=== PATIENT | female | born 1990 ===

== ENCOUNTER 2017-01-18 12:28 | Observation (INO) | payer SELFPAY ==
--- NOTE | 2017-01-18 12:34 | EDPHY ---
H & P HPI/ROS: CHIEF COMPLAINT: Dysphasic, disoriented HISTORY OF PRESENT ILLNESS: The patient is a 26 y/o female arriving emergently via EMS as a Stroke Alert with acute onset dysphasia around 11:30 this morning, one hour prior to arrival here. Per staff on scene who spoke with her , she has been having mild headaches for the past couple days. It's unclear if she has a history of migraines and she is unable to tell me. Per EMS, while she was at work this morning she noted to fellow staff that she felt "weird." This progressed to disorientation and dysphasia prompting staff to call 911. Upon EMS contact, she was unable to state and/or remember her name and was unable to move her legs. Blood sugar was noted to be around 50 and she was given glucose by the paramedics with no change in her condition. Upon arrival here, she has no obvious weakness, but has significant dysphasia and moderate difficulty following commands. No anticoagulant use by history from . REVIEW OF SYSTEMS: Unable to obtain due to patient condition. Past medical history: Occasional headaches, no clear diagnosis of migraine. 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 No alcohol or drug abuse. at bedside. General Appearance: Alert, disoriented. Blood pressure 111/43 at triage. Head: No visible trauma, nor is normocephalic. Eyes: Pupils equal and round, no conjunctival injection, no discharge. ENT, Mouth: Mucous membranes are moist, no oropharyngeal erythema or edema. Neck: No lymphadenopathy, supple. No carotid bruits. Respiratory: Lungs are clear to auscultation; no wheezes, rales, or rhonchi. Cardiovascular: Regular rate and rhythm; no murmur, rub, or gallop. Gastrointestinal: Abdomen is soft and non tender, no masses or organomegaly Skin: Warm and dry, no rashes, normal color. Back: Nontender to palpation over the thoracolumbar spine. Extremities: No lower extremity edema, no calf tenderness or swelling. Neurological: Alert. Initial quick neurologic exam performed in the hallway upon her arrival. Disoriented, can only state first name. Word-finding difficulty and difficulty following commands. No pronator drift. Able to life both legs from the gurney. Psychiatric: Normal affect but appears slightly anxious. Constitutional: Initial Vital Signs Temperature (C) 37.2 C 01/18/17 12:43 Heart Rate 68 01/18/17 12:43 Respiratory Rate 18 01/18/17 12:43 Blood Pressure 111/43 L 01/18/17 12:43 O2 Sat (%) 100 01/18/17 12:43 O2 Delivery Mode Room Air Allergies/Adverse Reactions: No Known Allergies Allergy (Unverified 01/18/17 14:22) Home Medications: Medication Instructions Recorded Ibuprofen [Motrin (*)] 200 - 400 mg PO DAILY PRN 01/18/17 Norethindrone-E.estradiol-Iron 1 each PO DAILY 01/18/17 [Microgestin Fe 1-20 Tablet] Medical Decision Making - Diagnostics EKG Interpretation: 12 lead EKG is interpreted in Trace master View by emergency department physician. Imaging: Discussed imaging studies w/ call center trainer Radiologist, I viewed and interpreted images myself ED Course/Re-evaluation: 1228: Met EMS upon arrival and took report. This is a 26 y/o female with no known medical history who presents with a one-hour history of acute onset dysphasia and difficulty following commands. EMS reports their first glucometer was not calibrated and initially showed a BGL of 51 so they administered 25g of Dextrose en route. Per EMS, her symptoms improved slightly by arrival here. Ongoing dysphasia and some difficulty understanding commands, but no focal weakness on my assessment. 1232: Sent to CT. 1239: Consulted with Dr. Mcginnis, [facility]. He will assess her via telemedicine robot. 1240: Non-contrast head CT negative. 1241: now at bedside. Telemedicine neuro assessment en progress. NIHSS, based on my exam, five. 1248: Since she has no contraindications to use of TPA, Dr. Mcginnis recommends administering it, given the persistent an obvious language difficulty that she is having. ER staff has begun mixing TPA in preparation. Dr. Mcginnis discussed risks and benefits with her and her . She and her agree to treatment. After she receives TPA, we will complete a CTA of her head and neck. 1302: TPA administered. 1325: Patient is reluctant to complete CTAs. She is very worried about the cost as she is between insurance carriers. She seems to be perseverating and although her speech has improved, it is still not normal. At the time of this re-evaluation she is able to read the sentences that, with the NIHSS and she is also to name some of the objects, but not all of them. She continues with some language difficulties, word-finding difficulty, on perseveration. She is denying headache. She is still unable to provide a cohesive history. She has normal and symmetric strength in all 4 extremities. [facility] Financial Assistance will come and speak with about payment and insurance coverage options. 1350: RN informs me patient is complaining of a headache. 1410: Reassessed patient. She is quite distressed and agitated and wants to go home, but is still inappropriate in her behavior and speech. Her says since returning from her CTA she has been complaining of a headache. TPA drip had almost finished, but we shut it off due to this change in presentation. 1412: Spoke with hospitalist service. Dr. Tolbert accepts admission. 1415: Continued reassessment. She is tearful and agitated. She is unable to tell me her name. She can only say, "I can't" in response to different questions. She continues to move all 4 extremities voluntarily and equally. MIGUEL ANGEL. EOMI. Tongue midline. Will consult with neurology again. 1423: Consulted again with Dr. Mcginnis, neurology. He wants a repeat CT to rule out hemorrhage. If the CT scan does not show a bleed he recommends completing TPA. 1425: Negative CTAs of the head and neck. 1427: Discussed recommendation with patient and her . They agree to another CT. She also agrees to take some Ativan to help with her anxiety. As it turns out, she was not given Ativan and she became calmer without any pharmacologic interventions. The 12 lead EKG was interpreted by myself. Sinus rhythm rate 71. See hard copy and/or "tracemaster" electronic copy for interpretation. I reviewed her laboratory studies. Repeat head CT, performed after initiation of tPA and in the setting of neurologic deterioration, is negative for intracranial hemorrhage. She is being admitted to the intensive care unit following the administration of tPA for possible stroke. Given her young age and lack of risk factors, stroke is unlikely. Stroke is even more unlikely in the setting of a normal head CT x2 and normal head and neck CT angiograms. However, an MRI will be needed to completely eliminate stroke from the differential. She initially had low blood sugar but this does not appear to be the explanation for her altered mental status and language difficulty. Electrolytes are within normal limits. I do not find any evidence of infection. None of the history is suggestive of seizure. She has not had recent trauma. She has complained intermittently of headache and has a family history of headache. I think complex migraine is the most likely diagnosis in this setting, given the information that is currently available. That said, she has significant neurologic deficit and I agree with the [facility] neurologist that stroke evaluation including tPA is fully warranted in this setting. Differential Diagnosis: Altered mental status including but not limited to hypoglycemia, infectious process, CVA, electrolyte abnormality, head injury and intoxicants. Critical Care Time: I, Dr. Alana Smith, personally spent a total of 45 minutes of critical care time including time spent obtaining a history, performing a physical exam, monitoring interventions, collecting and interpreting tests and in discussion with consultants. This does not include time spent performing procedures or physician ict sales assistant time. - Data Points Medications Given: Discontinued Medications Acetaminophen (Tylenol) 650 mg PO Q4HRS PRN PRN Reason: Pain, Mild/Fever, Can Take PO Stop: 07/17/17 15:13 Last Admin: 01/18/17 23:11 Dose: 650 mg Acetaminophen (Tylenol) 1,000 mg PO ONCE ONE Stop: 01/18/17 15:43 Last Admin: 01/18/17 15:52 Dose: 1,000 mg Alteplase, Recombinant (Activase) 5.229 mg 0.09 mg/kg (5.229 mg) IV ONCE ONE PRN Reason: Protocol Stop: 01/18/17 12:57 Last Admin: 01/18/17 13:02 Dose: 5.229 mg Alteplase, Recombinant (Activase) 47.061 mg 0.81 mg/kg (47.061 mg) IV ONCE ONE PRN Reason: Protocol Stop: 01/18/17 12:57 Last Admin: 01/18/17 13:03 Dose: 47.061 mg Dextrose (Dextrose 50% Syringe) 12.5 - 25 gm IVP PRN PRN; Protocol PRN Reason: BG<70 Stop: 07/17/17 15:17 Last Admin: 01/18/17 15:20 Dose: 12.5 gm Hydromorphone/Sodium Chloride (Hydromorphone) 0.2 mg IVP ONCE ONE Stop: 01/18/17 17:07 Last Admin: 01/18/17 17:10 Dose: 0.2 mg Sodium Chloride (Ns) 50 mls @ 0 mls/hr IV EDNOW ONE; Per Protocol PRN Reason: Protocol Stop: 01/18/17 12:57 Last Admin: 01/18/17 13:59 Dose: 25 mls Sodium Chloride (Ns) 1,000 mls @ 100 mls/hr IV CONT GIANNI Stop: 07/17/17 15:14 Last Admin: 01/19/17 01:00 Dose: 1,000 mls Lorazepam (Ativan Injection) 1 mg IVP EDNOW ONE Stop: 01/18/17 14:27 Last Admin: 01/18/17 16:32 Dose: Not Given Lorazepam (Ativan Injection) 1 mg IVP ONCE ONE Stop: 01/18/17 18:31 Last Admin: 01/18/17 18:23 Dose: 1 mg Miscellaneous Medication (Norethindrone-E.Estradiol-Iron [Microgestin Fe 1-20 Tablet]) 1 each PO DAILY GIANNI Stop: 07/18/17 08:59 Last Admin: 01/19/17 09:20 Dose: Not Given Ondansetron HCl (Zofran) 4 mg IVP Q4HRS PRN PRN Reason: Nausea/Vomiting, Can't Take PO Stop: 07/17/17 15:13 Last Admin: 01/18/17 17:13 Dose: 4 mg Departure - Departure Disposition: [facility] Inpatient Acute Clinical Impression: Dysphasia CVA (cerebral vascular accident) Qualifiers: CVA mechanism: other Qualified Code(s): I63.8 - Other cerebral infarction Condition: Fair Report Scribed for: Alana Smith Report Scribed by: Aarti Urena Date of Report: 01/18/17 Time of Report: 14:13 Physician Review and Approval Statement: 01/19/17 06:39 Portions of this note were transcribed by the diagnostic medical sonographer. I, Dr. Alana Smith, personally performed the history, physical exam, and medical decision- making; and confirmed the accuracy of the information in the transcribed note.
[2017-01-18 12:49] LABS: % IMMATURE GRANULYOCYTES 0.1 % (0.0-1.1); ABSOLUTE IMMATURE GRANULOCYTES 0.01 10^3/uL (0.00-0.10); ADD DIFF? NO; ADD MORPH? NO; ADD SCAN? NO; ATYPICAL LYMPHOCYTE FLAG 0 (0-99); FRAGMENT RBC FLAG 0 (0-99); HEMATOCRIT 42.7 % (38.0-47.0); HEMOGLOBIN 15.3 g/dL (12.6-16.3); LEFT SHIFT FLG 0 (0-99); LIPEMIA HEMOLYSIS FLAG 90 (0-99); MEAN CELL HEMOGLOBIN 30.7 pg (27.9-34.1); MEAN CELL HEMOGLOBIN CONCENTR. 35.8 g/dL (32.4-36.7); MEAN CELL VOLUME 85.7 fL (81.5-99.8); MEAN PLATELET VOLUME 11.8 fL (8.7-11.7); PLATELET CLUMPS FLAG 0 (0-99); PLATELET COUNT 230 10^3/uL (150-400); RED BLOOD CELL COUNT 4.98 10^6/uL (4.18-5.33); RED CELL DISTRIBUTION WIDTH 12.2 % (11.5-15.2)
[2017-01-18] MEDS ORDERED: ALTEPLASE 100 MG/100 ML VIAL IV ONE ×2 (12:50→12:56)
[2017-01-18] MEDS ORDERED: ALTEPLASE 1 MG/ML SYR IV ONE (12:56)
[2017-01-18] MEDS ORDERED: NS 50 ML IV ONE (12:56)
[2017-01-18 13:01] LABS: ANION GAP 16 mEq/L (8-16); CALCIUM 9.4 mg/dL (8.5-10.4); CARBON DIOXIDE 19 mEq/l (22-31); CHLORIDE 102 mEq/L (97-110); CREATININE 0.8 mg/dL (0.6-1.0); GLOMERULAR FILTRATION RATE > 60; GLUCOSE 83 mg/dL (70-100); POTASSIUM 3.9 mEq/L (3.5-5.2); SODIUM 137 mEq/L (134-144)
[2017-01-18 13:12] LABS: TROPONIN I < 0.012 ng/mL (0.000-0.034)
[2017-01-18] MEDS ORDERED: IOPAMIDOL (ISOVUE 370) 100 ML BTL IV ONE (13:13)
[2017-01-18 13:17] LABS: INR 0.97 (0.83-1.16); PROTIME(PATIENT) 12.8 SEC (12.0-15.0)
[2017-01-18 13:18] LABS: APTT 25.9 SEC (23.0-38.0)
[2017-01-18] MEDS ORDERED: LORazepam 2 MG/ML INJ IVP ONE ×2 (14:26→18:30)
--- NOTE | 2017-01-18 14:40 | CPEKG ---
Heart Rate: 71 RR Interval: 845 P-R Interval: 136 QRSD Interval: 82 QT Interval: 404 QTC Interval: 439 P [place]: 51 QRS [place]: 90 T Wave [place]: 10 EKG Severity - OTHERWISE NORMAL ECG - EKG Impression: SINUS RHYTHM EKG Impression: BORDERLINE RIGHT AXIS DEVIATION Electronically Signed By: Alana Smith 18-Jan-2017 15:28:46
[2017-01-18] MEDS ORDERED: ONDANSETRON 4 MG/2 ML VIAL IVP PRN (15:14)
[2017-01-18] MEDS ORDERED: ACETAMINOPHEN 325 MG TAB PO PRN (15:14)
[2017-01-18] MEDS ORDERED: ONDANSETRON DISINTEGRATING 4 MG TAB PO PRN (15:14)
[2017-01-18] MEDS ORDERED: D50W 25 GM/50 ML SYR IVP PRN (15:18)
--- NOTE | 2017-01-18 15:21 | ASMTCMCOM ---
CM Note CM Note Notes: 26 year old female admitted for CVA, Dysphasia. Tx = TPA. Therapies to eval, CM to follow-may not have discharge needs. Date Signed: 01/18/2017 03:20 PM Electronically Signed By:Fina Tyler LCSW
[2017-01-18] MEDS ORDERED: ACETAMINOPHEN 500 MG TAB PO ONE (15:42)
[2017-01-18] MEDS: NS 1,000 ML IV SCH (15:52)
--- NOTE | 2017-01-18 16:42 | GHP ---
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 She experienced an aura of decreased vision in he r right eye, with perhaps some numbness in her hand, and subsequently developed difficulty speaking. 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 She presented to the emergency department where aphasia was demonstrated. She had a normal noncontra st head CT, and in conjunction with [facility] from [facility], tPA was administered. My first encounter with the patient was after tPA was administered. She was having a difficult time answering questions. She was alert and had an expressive aphasia. There was some word salad. She h ad difficulty naming objects. She had a mild headache. She is anxious. She is upset. In speaking with her , she has no history of seizures. There is no heavy drug or alcohol use. They nathaniel borated a family history of migraines, although it is not clear if they have stroke mimicking symptom s. She denies recent fever, chills, cough, sputum, nausea, vomiting, diarrhea. She is not . At the scene, she was found have a blood glucose of 50. Glucose was administered without change in h er symptoms. REVIEW OF SYSTEMS: A complete 10-point review of systems was conducted and negative except as noted in the HPI. PAST MEDICAL HISTORY: None. ALLERGIES: None. HOME MEDICATIONS: control pills and naproxen. SOCIAL HISTORY: She has recently moved to [place] over the summer. She is from [place]. She is a nonsmoker, rare alcohol. FAMILY HISTORY: Notable for migraines. PHYSICAL EXAMINATION: PRESENTING VITALS: Temp 37.2, blood pressure 111/43, pulse 60, breathing 18 t imes a minute, 100% on room air. GENERAL: No acute distress. HEENT: Sclerae anicteric. Oropharyn x clear. Mucous membranes moist. NECK: Supple without lymphadenopathy or JVD. LUNGS: Clear to au scultation bilaterally. HEART: S1, S2 without murmurs. ABDOMEN: Soft, nontender, nondistended. L OWER EXTREMITIES: Without edema. Calves nontender. SKIN: Without rash. NEUROLOGIC: Exam reveals an expressive aphasia. She is having a hard time following commands. She is having a hard time com plying with the exam, but as best I can tell, there is no evidence of focal weakness or numbness. LABORATORY DATA: Sodium 137, potassium 3.9, chloride 102, bicarb 19, BUN 11, creatinine 0.8, glucose 83. Her calcium was 9.4. Troponin was less than 0.012. Beta hCG is negative. Coags are normal. CBC: White count 7, hematocrit 43, platelets are 230,000. EKG interpreted by me shows sinus at 71 with normal axis and intervals. There are no ST or T-wave ch anges. This is a normal EKG. Her initial head CT is a normal CT. CTA of the head is read as normal. [place] and its bra nches are normal. There is no evidence of aneurysm or vascular malformation. There are no occlusion s. I reviewed these studies with and Dr. Shaw Gil. CTA of the neck is normal. The re are widely patent carotids and vertebral arteries. Repeat noncontrast head CT performed after the worsening of symptoms in the ER is negative. I discussed the case at length with the [facility]ist, Dr. Alana Smith, Dr. Shaw Gil and Dr. William Rinaldi. ASSESSMENT/PLAN: A 26-year-old female who presents with aphasia concerning for cerebrovascular accid ent. 1. Question cerebrovascular accident. The patient has essentially zero risk factors for stroke, giv en age and absence of vascular history. She is in sinus rhythm. She does not have a history of clot ting or other disorders, nor are there any of these in her family. 2. At this point in time, there is no large vessel occlusion which does not exclude a cortical strok e. She has received tPA and a followup CT scan has showed no evidence of bleed. Her blood pressures are low in the 100/60 range. 3. I think an MRI is very important to distinguish stroke from other entity, such as atypical migrai ne or seizure. I have ordered an MRI without contrast. 4. Stroke workup. I think there is a serious possibly this does not represent stroke. The patient is very cough conscious. I have deferred secondary stroke workup pending the results of the MRI. 5. TPA administration. Her blood pressure is low. We will hold off on anticoagulation or antiplate let agents for at least 48 hours. 6. Metabolic acidosis. She has a mild acidosis. I suspect this is ketosis given her low blood suga r. It was repeated here and it was 58. 7. Prophylaxis. The patient is low risk. We will provide SCDs. 8. Disposition: ICU. /[id number]/MODL
[2017-01-18] MEDS ORDERED: HYDROmorphone HCL/NS/PF 0.4 MG/2 ML SYR IVP ONE (17:06)
[2017-01-18] MEDS ORDERED: LORazepam 2 MG/ML INJ ONE (17:59)
--- NOTE | 2017-01-18 19:07 | HOSPPROG ---
Hospitalist Progress Note Assessment/Plan: MRI negative for stroke- normal MRI 1. suspect atypical migraine in that she had aura, followed by neurologic sx followed by [facility] 2. EEG ordered for AM to rule out seizures 3. can forego remaining stroke workup Objective: Vital Signs Temp Pulse Resp BP Pulse Ox 36.2 C 69 23 H 104/60 100 01/18/17 16:00 01/18/17 18:45 01/18/17 18:45 01/18/17 18:45 01/18/17 18:45 Laboratory Results 01/18/17 Unknown 01/18/17 Unknown 01/17/17 01/18/17 01/19/17 05:59 05:59 05:59 Intake Total 48.3 Output Total 350 Balance -301.7 PT 12.8 SEC (12.0-15.0) 01/18/17 Unknown INR 0.97 (0.83-1.16) 01/18/17 Unknown ICD10 Worksheet Patient Problems: Problems Problem Status Onset CVA (cerebral vascular accident) Acute Dysphasia Acute
[2017-01-19] MEDS: NS 1,000 ML IV SCH (01:00)
--- NOTE | 2017-01-19 04:43 | GCON ---
[f rep st] CONSULTATION SUPERINTENDENT GENERAL CONSULTATION REASON FOR ADMISSION: Possible stroke. The patient is a very pleasant 26-year-old white female with a past medical history of migraines. Gibson griffin was brought in via EMS under a stroke alert for acute onset of dysphasia. [facility] was c onsulted, and a noncontrast CT was performed and it was negative. She was subsequently given tPA and admitted to the intensive care unit. Repeat CT scan does not show acute stroke. Currently, she is still remains dysphasic. She is able answer a few questions appropriately, but many she is not able to. She is somewhat tearful. PAST MEDICAL HISTORY: Again, significant for migraines. PAST SURGICAL HISTORY: None. ALLERGIES: No known to medications. SOCIAL HISTORY: No history of tobacco use. No history of alcohol abuse. She works at [employer]. She is . is at the bedside. PHYSICAL EXAM: VITAL SIGNS: Blood pressure is 137/111, pulse is 115, respirations 22, temperature 3 6.6, oxygen saturation 100% on room air. GENERAL: She is a well-developed, well-nourished, 26-year- old, white female who is mild distress. HEENT: Eyes MIGUEL ANGEL, EOMI. Throat shows no erythema or tonsil lar hypertrophy. NECK: Supple. There is no cervical adenopathy. HEART: Regular rate and rhythm w ithout murmurs, rubs, or gallops. LUNGS: Clear to auscultation. No wheeze or rhonchi. ABDOMEN: S oft, nontender. Bowel sounds are present in all 4 quadrants. EXTREMITIES: No clubbing, cyanosis, o r edema. NEUROLOGICAL: She has some evidence of expressive aphasia. IMPRESSION: Expressive aphasia, etiology which is unclear. She has had a negative CT scan of the he ad. Query whether this may be seizure versus complex migraine. RECOMMENDATIONS: 1. Neurology consult. 2. Agree with MRI. 3. PT and OT. 4. Speech consult. 5. DVT and PE prophylaxis. 6. Stress ulcer prophylaxis. /[id number]/MODL
[2017-01-19 05:18] LABS: % IMMATURE GRANULYOCYTES 0.2 % (0.0-1.1); ABSOLUTE IMMATURE GRANULOCYTES 0.02 10^3/uL (0.00-0.10); ADD DIFF? NO; ADD MORPH? NO; ADD SCAN? NO; ATYPICAL LYMPHOCYTE FLAG 10 (0-99); FRAGMENT RBC FLAG 0 (0-99); HEMATOCRIT 36.1 % (38.0-47.0); HEMOGLOBIN 12.8 g/dL (12.6-16.3); LEFT SHIFT FLG 0 (0-99); LIPEMIA HEMOLYSIS FLAG 90 (0-99); MEAN CELL HEMOGLOBIN CONCENTR. 35.5 g/dL (32.4-36.7); MEAN CELL VOLUME 87.4 fL (81.5-99.8); MEAN PLATELET VOLUME 11.2 fL (8.7-11.7); PLATELET CLUMPS FLAG 0 (0-99); PLATELET COUNT 191 10^3/uL (150-400); RED BLOOD CELL COUNT 4.13 10^6/uL (4.18-5.33); RED CELL DISTRIBUTION WIDTH 12.2 % (11.5-15.2)
[2017-01-19 05:48] LABS: INR 1.16 (0.83-1.16); PROTIME(PATIENT) 14.8 SEC (12.0-15.0)
[2017-01-19 08:27] VITALS: TEMP 207.7
[2017-01-19] MEDS ORDERED: NORETHINDRONE E ESTRADIOL IRON PO SCH (09:00)
[2017-01-19] MEDS ORDERED: MICROGESTIN FE PO SCH (09:00)
--- NOTE | 2017-01-19 09:07 | PDINTPN ---
[facility] Progress Note Assessment/Plan: Assessment: * Expressive aphasia-resolved * Complex migraine Plan: Continue bed rest of this afternoon after receiving tPA yesterday. Begin PT and OT later on today Neurology to see Anticipate discharge home today Subjective: Looks and feels markedly improved. Expressive aphasia has resolved Objective: Vital Signs Temp Pulse Resp BP Pulse Ox 97.6 C H 76 20 115/71 97 01/19/17 08:15 01/19/17 08:15 01/19/17 08:15 01/19/17 08:15 01/19/17 08:15 Laboratory Results 01/19/17 05:00 01/18/17 Unknown 01/18/17 01/19/17 01/20/17 05:59 05:59 05:59 Intake Total 1248.3 500 Output Total 750 400 Balance 498.3 100 PT 14.8 SEC (12.0-15.0) 01/19/17 05:00 INR 1.16 (0.83-1.16) 01/19/17 05:00 Laboratory Results 01/19/17 05:00 01/18/17 Unknown 01/18/17 16:10 Urine Opiates Screen NEGATIVE Urine Barbiturates NEGATIVE Ur Phencyclidine Scrn NEGATIVE Ur Amphetamine Screen NEGATIVE U Benzodiazepines Scrn NEGATIVE Urine Cocaine Screen NEGATIVE U Marijuana (THC) Screen NEGATIVE Physical Exam - Physical Exam General Appearance: WD/WN, alert, no apparent distress EENT: PERRL/EOMI Neck: non-tender, full range of motion, supple, normal inspection Respiratory: chest non-tender, lungs clear, normal breath sounds Cardiac/Chest: normal peripheral pulses, regular rate, rhythm Peripheral Pulses: 2+: carotid (R), carotid (L), femoral (R), femoral (L), dorsalis-pedis (R), dorsalis-pedis (L) Abdomen: normal bowel sounds, non-tender, soft Pelvic Exam: deferred Rectal: deferred Skin: normal color, warm/dry Extremities: normal range of motion, non-tender, normal inspection, normal capillary refill Neuro/Psych: no motor/sensory deficits, alert, normal mood/affect, oriented x 3 ICD10 Worksheet Patient Problems: Problems Problem Status Onset CVA (cerebral vascular accident) Acute Dysphasia Acute
--- NOTE | 2017-01-19 11:47 | NEUROPROG ---
Assessment: HOSPITAL NEUROLOGY CONSULT REQUESTING: Kali Tolbert MD REASON: possible stroke, post-tPA HPI: 26 year old right-handed woman with a history of migraine headaches presented to our facility yesterday as a stroke alert. Patient has a history of migraine with aura. She gets episodes of monocular visual aura manifest as migrating blurred quadrantic defect, then pulsing hemicranial pain with nausea and photophobia. They have never been severe. Yesterday, she was at work. Around 0900 she got her typical visual aura, then left hemicranial throbbing pain with nausea and photophobia. The pain accelerated to a severity never felt before. Around 1100, she started to feel her right hand tingle. She then developed expressive language difficulty. This was very frightening, so EMS was summoned to her work and she was transported to our ED as a stroke alert. She was still symptomatic with expressive language disturbance, and initial NIHSS was 4 as noted in the EMR. She had a normal CT head wo. Telestroke deemed her a tPA candidate and bolus was started at 1302. CTA was done afterwards and head/neck vessels were normal caliber. Her symptoms gradually resolved with admission to the ICU. MRI brain wo was done and was normal. Patient denies any prior history of prolonged migraine auras. She had no impaired awareness during this episode. No adventitial movements. She can't think of anything that may have provoked the episode aside from skipping breakfast. No vascular risk factors. ROS: As per the HPI, otherwise a complete 12 point ROS was performed and is negative ALLERGIES AND MEDS: As recorded in the EMR - reviewed and reconciled PFSH: As per the intake H&P by Dr. Tolbert from yesterday EXAM: VS reviewed in EMR GEN: WDWN laying in NAD HEENT: NCAT, sclera anicteric, conjunctiva not injected, MMM, oropharynx clear, no scalp tenderness NECK: supple, nontender, no meningismus CV: RRR s1 s2 wo m/r/c/g. Carotid pulses 2+ wo bruit NEURO: MS: awake, alert, oriented to all spheres. Speech nondysarthric. No language disturbance. Follows commands. Attends to both sides. Recent/remote memory grossly intact. Mood euthymic. Good fund of knowledge. CN: pupils 5mm round and reactive. Fundi with sharp discs. VFF. Primary gaze centered. Full ocular motility. Facial sensation preserved. Face symmetric. Hearing grossly intact to finger rub. Palatoglossal movements intact. Shoulder shrug and head turn strong. MOTOR: normal bulk/tone. No adventitial movements. Full power throughout. SENSORY: intact to all modalities throughout. No extinction. COORD: no ataxia FN/HS. Adilene preserved. REFLEX: plantars down. No clonus. DTRS 2/4. GAIT: deferred to PT safety eval. DATA REVIEW: Labs reviewed in EMR PERSONALLY INTERPRETED RESULTS AND DATA: MRI brain wo - normal CT head wo - normal CTA head/neck - normal IMPRESSION AND RECOMMENDATIONS: // MIGRAINE WITH PROLONGED AURA (formerly known as complex/complicated migraine) Patient with migraine headache followed by right hand numbness and expressive language difficulty. Her studies to date have been normal. The preceding typical migraine symptoms are very compelling that this was a migrainous spell. I don't think this was a stroke/TIA, or anything else sinister like a seizure. She is feeling back to baseline today. She still requires critical care services as she is still within the 24 hour post-tPA window. - cont ICU monitoring for post-tPA surveillance per protocol - cont normotension - PT consultation for gait safety evaluation after 24hour post-tPA time - repeat head CT at 1300 for 24 hour post-tPA hemorrhage evaluation - hold all antiplatelet/anticoagulants within 24h post-tPA - if repeat CT head wo is normal, patient can be discharged home - followup neurology at her convenience to discuss migraine interventions 45 mins CC time in direct patient care activities on the floor Patient is critically ill having received high-risk thrombolytic therapy less than 24 hours prior to evaluation Objective: Vital Signs Temp Pulse Resp BP Pulse Ox 97.6 C H 60 21 H 115/58 L 98 01/19/17 08:15 01/19/17 11:15 01/19/17 11:15 01/19/17 11:15 01/19/17 11:15 Laboratory Results 01/19/17 05:00 01/18/17 Unknown 01/18/17 01/19/17 01/20/17 05:59 05:59 05:59 Intake Total 1248.3 500 Output Total 750 400 Balance 498.3 100 PT 14.8 SEC (12.0-15.0) 01/19/17 05:00 INR 1.16 (0.83-1.16) 01/19/17 05:00 Allergies/Adverse Reactions: No Known Allergies Allergy (Unverified 01/18/17 14:22)
[2017-01-19 13:19] VITALS: BP 124/68; PULSE 100; RESP 20; O2SAT 95
--- NOTE | 2017-01-19 14:59 | HOSPPROG ---
Hospitalist Progress Note Assessment/Plan: #Migraine: concern or CVA. s/p tPA. Negative MRI. Repeat CTH negative -[facility] Neurology for further treatment if needed #DC today Subjective: No numbness or headache Objective: Vital Signs Temp Pulse Resp BP Pulse Ox 97.6 C H 100 20 124/68 H 95 01/19/17 08:15 01/19/17 13:15 01/19/17 13:15 01/19/17 13:15 01/19/17 13:15 Laboratory Results 01/19/17 05:00 01/18/17 Unknown 01/18/17 01/19/17 01/20/17 05:59 05:59 05:59 Intake Total 1248.3 500 Output Total 750 400 Balance 498.3 100 PT 14.8 SEC (12.0-15.0) 01/19/17 05:00 INR 1.16 (0.83-1.16) 01/19/17 05:00 - Physical Exam Constitutional: no apparent distress Eyes: PERRL Ears, Nose, Mouth, Throat: moist mucous membranes Cardiovascular: regular rate and rhythym Respiratory: no respiratory distress Gastrointestinal: normoactive bowel sounds Genitourinary: no bladder fullness Skin: warm Musculoskeletal: full muscle strength Neurologic: AAOx3, sensation intact bilaterally, CN II-XII Intact, No weakness, No facial droop ICD10 Worksheet Patient Problems: Problems Problem Status Onset CVA (cerebral vascular accident) Acute Dysphasia Acute
--- NOTE | 2017-01-19 17:02 | GDS ---
[f rep st] DISCHARGE SUMMARY DISCHARGE DIAGNOSES: 1. Aphasia. 2. Migraine with prolonged aura. HISTORY OF PRESENT ILLNESS: A 26-year-old female with a history of migraines, who presented with an aura of decreased vision in her right eye and some numbness in her hands. She subsequently developed difficulty speaking. At 11 a.m. 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 911 was called. She presented to the ER where aphasia was demonstrated. Had a normal CT head, was evaluated by [facility], and tPA was administered. Dr. Tolbert's initial interview was after tPA. At that time, she had expressive aphasia and some word salad. She could not name objects and had a mild headache. HOSPITAL COURSE BY PROBLEM: 1. Aphasia: Patient was evaluated by Neurology in the ER room with aphasia and was given tPA with resolution of symptoms. She underwent CT head, CTA, and brain MRI, that were all negative. She was monitored in the ICU for [address] head was negative. Neurology evaluated and suspected likely migraine with aura. She can follow up with them as an outpatient if needed for headaches. 2. History of migraines. Again, plan as stated above. DISPOSITION: Patient for discharge home. FOLLOWUP: Neurology, as needed. /[id number]/MODL MTDD
--- NOTE | 2017-01-20 15:51 | ASDISCHSUM ---
Discharge Information Plan Status:Home with No Needs Medically Cleared to Leave:01/18/2017 Discharge Date:01/19/2017 03:55 PM CM D/C Disposition:Home, Routine, Self-Care ADT D/C Disposition:Home, Routine, Self-Care Projected Discharge Date:01/19/2017 06:00 PM Transportation at D/C:Family Discharge Delay Reason: Follow-Up Date:01/19/2017 06:00 PM Discharge Slot: Final Diagnosis:Migraine concern or CVA Placement Information Patient Contact Information Contact Name:KEREN Relationship: Address:[address] Work Phone: City:[place] Alternate Phone: [facility]/Zip Code:[place] [address] Email: Financial Information Financial Class:Self-Pay Primary Plan Desc:SELF PAY Primary Plan Number: Secondary Plan Desc: Secondary Plan Number: Assessment Information [facility] CM Progress Note CM Note CM Note Notes: 26 year old female admitted for CVA, Dysphasia. Tx = TPA. Therapies to eval, CM to follow-may not have discharge needs. Date Signed: 01/18/2017 03:20 PM Electronically Signed By:Fina Tyler LCSW Case Management Discharge Plan Note Case Management Discharge Discharge Order Complete? Answers: Yes Patient to Obtain Answers: Independently Medications Transportation Arranged Answers: Family/Friends Transport will Pick (Date 01/19/2017 06:00 PM & Time) BARBY Complete Answers: No Case Management Transport Answers: No Notes: Not needed Form Complete Faxed Final Orders Answers: No Notes: Patient given instructions Agency/Facility Transfer Answers: No Notes: Going home Report Printed & Faxed to Receiving Agency Family Notified Answers: Yes Discharge Comments Notes: Patient's CVA like symptoms resolved. Date Signed: 01/19/2017 04:14 PM Electronically Signed By:Fina Tyler LCSW Intervention Information Intervention Type:*Incorrect Registration Date of Service:01/19/2017 07:18 AM Patient Type:Inpatient Staff Member:KALEE Gallego, Betyt Hours: Discipline: Severity: Comment:
== END 2017-01-19 15:55 | disposition home or self-care (01) ==
LOC: INTOOBSV 14:13 → F2N 14:52
PROVIDERS: ADMIT Internal Medicine; ATTEND Internal Medicine
DX: R47.01 Aphasia (principal); G43.109 Migraine with aura, not intractable, without status migrainosus
CPT/HCPCS: 80305; 82947-QW; G0378; J1170; J2060; J2405; J2997; Q9967